=== PATIENT | female | born 1950 | race Caucasian/White ===

== ENCOUNTER 2021-04-12 20:14 | Inpatient (IN) | payer OTHER ==
[~2021-04-12] VITALS: Ht 162.6 cm; Wt 69.5 kg
[2021-04-12] MEDS ORDERED: SODIUM CHLORIDE 0.9% 1,000 ML IV ONE ×2 (21:15→23:30)
[2021-04-12 22:01] LABS: MEAN CORPUSCULAR HEMOGLOBIN 27.3 pg (28.0-32.0); MEAN CORPUSCULAR VOLUME 84.9 fL (81.0-99.0); MEAN PLATELET VOLUME 8.1 fl (7.4-10.4); PLATELET 443 x1000/uL (130-400); RED CELL DISTRIBUTION WIDTH 15.6 % (11.6-14.6)
[2021-04-12 22:05] LABS: CHLORIDE 97 mEq/L (98-107)
[2021-04-12 22:09] LABS: INR 1.2; PROTHROMBIN TIME 12.3 sec (9.6-11.0)
[2021-04-12] MEDS ORDERED: CEFEPIME 1,000 MG in DEXTROSE 5% WATER 50 ML IV SCH (22:15)
[2021-04-12] MEDS ORDERED: VANCOMYCIN 1 G PREMIX 200 ML IV SCH (22:15)
[2021-04-12 22:21] LABS: PLATELET ESTIMATE SLIGHTLY INCREASED
[2021-04-12] MEDS ORDERED: POTASSIUM CHLORIDE 20MEQ TABLET SR PO ONE (23:30)
[2021-04-12] MEDS ORDERED: NOREPINEPHRINE 8 MG in DEXT 5% WATER 242 ML IV PRN (23:45)
[2021-04-13] VITALS (77 sets, daily range): BP systolic 45–131; BP diastolic 22–103
[2021-04-13] MEDS ORDERED: KCL 10MEQ/50ML PREMIX 50 ML IV ONE (00:15)
[2021-04-13] MEDS: NOREPINEPHRINE 8MG/250ML PMX 250 ML IV PRN ×2 (00:22→02:35)
[2021-04-13] MEDS ORDERED: FENTANYL CITRATE/PF 50MCG/ML 2ML VIAL ONE (06:11)
[2021-04-13] MEDS ORDERED: MIDAZOLAM HCL 2 MG/2 ML VIAL ONE ×2 (06:11→06:28)
[2021-04-13] MEDS ORDERED: GLYCOPYRROLATE 0.2 MG/ML 2ML VIAL ONE (06:11)
[2021-04-13] MEDS ORDERED: ROCURONIUM BROMIDE 10MG/ML VIAL 5ML IV ONE ×2 (06:11→06:56)
[2021-04-13] MEDS ORDERED: PROPOFOL 200MG/20ML VIAL IV ONE (06:11)
[2021-04-13] MEDS ORDERED: NEOSTIGMINE METHYLSULFATE 1MG/ML 10 ML VIAL ONE (06:11)
[2021-04-13] MEDS ORDERED: PHENYLEPHRINE HCL 10 MG/ML 1ML (IV VIAL) IV ONE (06:11)
[2021-04-13] MEDS ORDERED: SODIUM CHLORIDE 0.9% 10ML VIAL ONE (06:12)
[2021-04-13] MEDS ORDERED: CEFAZOLIN SODIUM 1000MG/VIAL ONE (06:12)
[2021-04-13] MEDS ORDERED: BUPIVACAINE HCL/PF 0.5% (5MG/ML) 10ML ONE (06:12)
[2021-04-13] MEDS ORDERED: ONDANSETRON HCL 4MG/2ML INJ ONE (06:12)
[2021-04-13] MEDS ORDERED: SUCCINYLCHOLINE CHLORIDE 200MG/10ML IV ONE (06:12)
[2021-04-13] MEDS ORDERED: METOCLOPRAMIDE HCL 10MG/2ML VIAL ONE (06:12)
[2021-04-13] MEDS ORDERED: MORPHINE SULFATE 2 MG/ML CPJ (NOT FOR IM USE) IV PRN (06:15)
[2021-04-13] MEDS ORDERED: ONDANSETRON HCL 4MG/2ML INJ IV PRN (06:15)
[2021-04-13] MEDS ORDERED: DEXT 5%/0.45% NACL KCL 20MEQ/L 1,000 ML IV SCH ×2 (06:15→11:00)
[2021-04-13] MEDS ORDERED: POTASSIUM CHLORIDE INJ 40 MEQ in DEXT 5% WATER 250 ML IV NR ×2 (06:15→10:00)
[2021-04-13] MEDS ORDERED: MORPHINE SULFATE 4 MG/ML CPJ (NOT FOR IM USE) IV PRN (06:15)
[2021-04-13] MEDS ORDERED: SODIUM BICARBONATE 8.4% 1 MEQ/ML 50ML SYR IV ONE (06:26)
[2021-04-13] MEDS ORDERED: ALBUMIN HUMAN 12.5G/250ML (5%) IV ONE ×2 (06:29→06:50)
[2021-04-13 09:09] LABS: BG CARBOXYHEMOGLOBIN 0.9 % (0.5-1.5); BG DEOXYHEMOGLOBIN 0.8 % (0.0-5.0); BG FRACTION INSPIRED OXYGEN 60; BG METHEMOGLOBIN 0.3 % (0.0-1.5); BG OXYGEN SATURATION 99.2 % (92.0-98.5); BG PCO2 34.7 mmHg (35.0-45.0); BG PH 7.332 (7.350-7.450); BG PO2 170.1 mmHg (75.0-100.0); BG SAMPLE SITE RIGHT RADIAL; BG TOTAL HEMOGLOBIN 14.8 g/dL (12.0-18.0); BG VENT MODE VENT - AC
[2021-04-13 09:24] LABS: HEMOGLOBIN. 10.8 g/dL (12.0-16.0); MEAN CORPUSCULAR HEMOGLOBIN 28.8 pg (28.0-32.0); MEAN CORPUSCULAR VOLUME 87.6 fL (81.0-99.0); MEAN PLATELET VOLUME 8.3 fl (7.4-10.4); PLATELET 163 x1000/uL (130-400); RED BLOOD CELL COUNT 3.77 mill/uL (4.2-5.4); RED CELL DISTRIBUTION WIDTH 15.7 % (11.6-14.6)
[2021-04-13] MEDS ORDERED: IPRATROPIUM/ALBUTEROL 0.5-3(2.5)MG/3ML NEB HHN PRN (09:30)
[2021-04-13 10:17] LABS: PLATELET ESTIMATE NORMAL
[2021-04-13] MEDS: METRONIDAZOLE 500 MG PREMIX 100 ML IV SCH ×3 (10:57→21:26)
[2021-04-13] MEDS: DEXT 5%/0.9% NACL 1,000 ML IV SCH ×2 (11:32→21:24)
[2021-04-13] MEDS: CEFEPIME 1,000 MG in DEXTROSE 5% WATER 50 ML IV SCH ×2 (11:59→23:36)
[2021-04-13 12:21] LABS: CLARITY URINE CLOUDY (CLEAR); COLOR URINE YELLOW (YELLOW); KETONES URINE NEGATIVE (NEGATIVE); LEUKOCYTE ESTERASE URINE TRACE (NEGATIVE); NITRITE URINE POSITIVE (NEGATIVE); OCCULT BLOOD URINE 1+ (NEGATIVE); PROTEIN URINE 3+ (NEGATIVE); SPECIFIC GRAVITY URINE 1.015 (1.005-1.030); UROBILINOGEN URINE 0.2 E.U./dL (0.2-1.0)
[2021-04-13 14:04] LABS: BG BASE EXCESS -7.2 mmol/L (-2.0-2.0); BG CARBOXYHEMOGLOBIN 0.6 % (0.5-1.5); BG DEOXYHEMOGLOBIN 3.7 % (0.0-5.0); BG FRACTION INSPIRED OXYGEN 40; BG HCO3 ACT 18.7 mmol/L (22.0-26.0); BG METHEMOGLOBIN 0.3 % (0.0-1.5); BG OXYGEN SATURATION 96.3 % (92.0-98.5); BG OXYHEMOGLOBIN 95.4 % (94.0-97.0); BG PCO2 38.9 mmHg (35.0-45.0); BG PH 7.299 (7.350-7.450); BG PO2 85.6 mmHg (75.0-100.0); BG SAMPLE SITE LEFT RADIAL; BG VENT MODE MASK - CPAP
[2021-04-13] MEDS ORDERED: FENTANYL CITRATE/PF 2,500 MCG in SODIUM CHLORIDE 0.9% 200 ML IV PRN (14:30)
[2021-04-13] MEDS ORDERED: SODIUM CHLORIDE 0.9% 500 ML IV NR ×2 (14:30→15:30)
[2021-04-13] MEDS: MORPHINE SULFATE 2 MG/ML CPJ (NOT FOR IM USE) IV PRN (14:50)
[2021-04-13] MEDS ORDERED: SODIUM CHLORIDE 0.9% 1,000 ML IV ONE (15:15)
[2021-04-13] MEDS ORDERED: SODIUM CHLORIDE 0.9% 1,000 ML IV NR (15:19)
[2021-04-13] MEDS ORDERED: PHENYLEPHRINE 100 MG in DEXT 5% WATER 240 ML IV PRN (18:30)
[2021-04-13] MEDS: FAMOTIDINE 20MG/2ML VIAL IV SCH (21:24)
[2021-04-14] VITALS (79 sets, daily range): BP systolic 76–168; BP diastolic 35–111
[2021-04-14] MEDS: METRONIDAZOLE 500 MG PREMIX 100 ML IV SCH ×3 (06:06→22:30)
[2021-04-14 06:10] LABS: HEMATOCRIT. 38.1 % (36.0-48.0); HEMOGLOBIN. 12.3 g/dL (12.0-16.0); MEAN CORPUSCULAR VOLUME 84.1 fL (81.0-99.0); MEAN PLATELET VOLUME 8.4 fl (7.4-10.4); PLATELET 318 x1000/uL (130-400); RED BLOOD CELL COUNT 4.53 mill/uL (4.2-5.4); RED CELL DISTRIBUTION WIDTH 16.2 % (11.6-14.6)
[2021-04-14 06:24] LABS: PHOSPHORUS 3.2 mg/dL (2.5-4.9)
[2021-04-14] MEDS: DEXT 5%/0.9% NACL 1,000 ML IV SCH ×2 (09:20→23:50)
[2021-04-14 10:40] LABS: BG BASE EXCESS -8.1 mmol/L (-2.0-2.0); BG CARBOXYHEMOGLOBIN 0.3 % (0.5-1.5); BG DEOXYHEMOGLOBIN 1.7 % (0.0-5.0); BG FRACTION INSPIRED OXYGEN 40; BG HCO3 ACT 16.7 mmol/L (22.0-26.0); BG METHEMOGLOBIN 0.4 % (0.0-1.5); BG OXYGEN SATURATION 98.3 % (92.0-98.5); BG OXYHEMOGLOBIN 97.6 % (94.0-97.0); BG PH 7.335 (7.350-7.450); BG PO2 128.6 mmHg (75.0-100.0); BG SAMPLE SITE RIGHT RADIAL; BG TOTAL HEMOGLOBIN 12.1 g/dL (12.0-18.0); BG VENT MODE VENT - CPAP
[2021-04-14] MEDS: CEFEPIME 1,000 MG in DEXTROSE 5% WATER 50 ML IV SCH ×2 (13:08→23:49)
[2021-04-14] MEDS ORDERED: NALOXONE HCL 0.4MG/ML VIAL IV PRN (13:15)
[2021-04-14] MEDS: MORPHINE SULFATE 2 MG/ML CPJ (NOT FOR IM USE) IV PRN (16:41)
[2021-04-14] MEDS: FAMOTIDINE 20MG/2ML VIAL IV SCH (21:53)
[2021-04-15] VITALS (60 sets, daily range): BP systolic 91–198; BP diastolic 45–148
[2021-04-15] MEDS: MORPHINE SULFATE 2 MG/ML CPJ (NOT FOR IM USE) IV PRN ×2 (04:41→12:17)
[2021-04-15 05:17] LABS: HEMATOCRIT. 34.8 % (36.0-48.0); HEMOGLOBIN. 11.3 g/dL (12.0-16.0); MEAN CORPUSCULAR HEMOGLOBIN 27.6 pg (28.0-32.0); MEAN CORPUSCULAR VOLUME 84.6 fL (81.0-99.0); PLATELET 265 x1000/uL (130-400); RED BLOOD CELL COUNT 4.12 mill/uL (4.2-5.4); RED CELL DISTRIBUTION WIDTH 16.2 % (11.6-14.6)
[2021-04-15] MEDS: METRONIDAZOLE 500 MG PREMIX 100 ML IV SCH ×3 (06:36→21:43)
[2021-04-15 09:16] LABS: BG BASE EXCESS -9.8 mmol/L (-2.0-2.0); BG CARBOXYHEMOGLOBIN 0.2 % (0.5-1.5); BG DEOXYHEMOGLOBIN 1.6 % (0.0-5.0); BG HCO3 ACT 15.6 mmol/L (22.0-26.0); BG METHEMOGLOBIN 0.4 % (0.0-1.5); BG OXYGEN SATURATION 98.4 % (92.0-98.5); BG OXYHEMOGLOBIN 97.8 % (94.0-97.0); BG PCO2 32.6 mmHg (35.0-45.0); BG PH 7.297 (7.350-7.450); BG PO2 128.9 mmHg (75.0-100.0); BG SAMPLE SITE RIGHT RADIAL; BG TOTAL HEMOGLOBIN 12.1 g/dL (12.0-18.0); BG VENT MODE NASAL CANNULA
[2021-04-15] MEDS ORDERED: HYDRALAZINE 20MG/ML VIAL IV PRN (10:15)
[2021-04-15] MEDS ORDERED: HYDRALAZINE 20MG/ML VIAL IV SCH (10:15)
[2021-04-15 10:18] LABS: PLATELET ESTIMATE NORMAL
[2021-04-15] MEDS: CEFEPIME 1,000 MG in DEXTROSE 5% WATER 50 ML IV SCH ×2 (11:09→23:14)
[2021-04-15] MEDS: DEXT 5%/0.45% NACL 1000ML 1,000 ML IV SCH (11:10)
[2021-04-15] MEDS: FAMOTIDINE 20MG/2ML VIAL IV SCH (21:42)
[2021-04-16] VITALS (12 sets, daily range): BP systolic 92–160; BP diastolic 51–99
[2021-04-16] MEDS: METRONIDAZOLE 500 MG PREMIX 100 ML IV SCH ×3 (06:43→21:15)
[2021-04-16 07:13] LABS: HEMOGLOBIN. 11.4 g/dL (12.0-16.0); MEAN CORPUSCULAR VOLUME 85.1 fL (81.0-99.0); MEAN PLATELET VOLUME 8.4 fl (7.4-10.4); PLATELET 251 x1000/uL (130-400); RED BLOOD CELL COUNT 4.22 mill/uL (4.2-5.4); RED CELL DISTRIBUTION WIDTH 17.1 % (11.6-14.6)
[2021-04-16 07:44] LABS: PHOSPHORUS 4.1 mg/dL (2.5-4.9)
[2021-04-16] MEDS: DEXT 5%/0.45% NACL 1000ML 1,000 ML IV SCH (09:07)
[2021-04-16 10:43] LABS: PLATELET ESTIMATE NORMAL
[2021-04-16] MEDS: CEFEPIME 1,000 MG in DEXTROSE 5% WATER 50 ML IV SCH (12:13)
[2021-04-16] MEDS: FAMOTIDINE 20MG/2ML VIAL IV SCH (21:14)
[2021-04-16] MEDS: DEXTROSE 5% WATER 1,000 ML IV SCH (21:15)
[2021-04-17] VITALS (11 sets, daily range): BP systolic 71–151; BP diastolic 48–95
[2021-04-17] MEDS: METRONIDAZOLE 500 MG PREMIX 100 ML IV SCH ×2 (05:59→15:19)
[2021-04-17 07:11] LABS: HEMATOCRIT. 34.8 % (36.0-48.0); HEMOGLOBIN. 11.2 g/dL (12.0-16.0); MEAN CORPUSCULAR HEMOGLOBIN 26.7 pg (28.0-32.0); MEAN CORPUSCULAR VOLUME 82.9 fL (81.0-99.0); MEAN PLATELET VOLUME 8.1 fl (7.4-10.4); PLATELET 215 x1000/uL (130-400); RED BLOOD CELL COUNT 4.19 mill/uL (4.2-5.4); RED CELL DISTRIBUTION WIDTH 16.5 % (11.6-14.6)
[2021-04-17 08:27] LABS: PHOSPHORUS 3.9 mg/dL (2.5-4.9)
[2021-04-17] MEDS: CEFEPIME 1,000 MG in DEXTROSE 5% WATER 50 ML IV SCH (10:58)
[2021-04-17 15:19] LABS: PLATELET ESTIMATE NORMAL
[2021-04-17] MEDS: DEXTROSE 5% WATER 1,000 ML IV SCH (16:00)
[2021-04-17 16:39] LABS: HEPATITIS B SURFACE ANTIGEN NEGATIVE
[2021-04-17] MEDS ORDERED: ALBUMIN HUMAN 25GM/100ML (25%) IV NR (20:45)
[2021-04-17] MEDS ORDERED: SODIUM CHLORIDE 0.9% 500 ML IV ONE (20:45)
[2021-04-17] MEDS: FAMOTIDINE 20MG/2ML VIAL IV SCH (21:33)
[2021-04-18] VITALS (11 sets, daily range): BP systolic 82–151; BP diastolic 54–86
[2021-04-18 07:31] LABS: BASOPHILS % 0.3 % (0.0-2.0); EOSINOPHILS % 1.1 % (0.0-5.0); HEMATOCRIT. 34.4 % (36.0-48.0); HEMOGLOBIN. 11.1 g/dL (12.0-16.0); LYMPHOCYTES % 7.1 % (20.0-50.0); MEAN CORPUSCULAR HEMOGLOBIN 26.5 pg (28.0-32.0); MEAN CORPUSCULAR VOLUME 82.3 fL (81.0-99.0); MEAN PLATELET VOLUME 8.2 fl (7.4-10.4); MONOCYTES % 8.5 % (2.0-8.0); PLATELET 158 x1000/uL (130-400); RED BLOOD CELL COUNT 4.17 mill/uL (4.2-5.4); RED CELL DISTRIBUTION WIDTH 16.3 % (11.6-14.6)
[2021-04-18 08:01] LABS: PHOSPHORUS 3.3 mg/dL (2.5-4.9)
[2021-04-18] MEDS: METRONIDAZOLE 500 MG PREMIX 100 ML IV SCH ×2 (08:53→21:01)
[2021-04-18] MEDS: CEFEPIME 1,000 MG in DEXTROSE 5% WATER 50 ML IV SCH (10:43)
[2021-04-18] MEDS: DEXTROSE 5% WATER 1,000 ML IV SCH (14:47)
[2021-04-18] MEDS: FAMOTIDINE 20MG/2ML VIAL IV SCH (21:01)
[2021-04-19] VITALS (12 sets, daily range): BP systolic 118–159; BP diastolic 56–76
[2021-04-19 05:41] LABS: HEMATOCRIT. 30.9 % (36.0-48.0); HEMOGLOBIN. 10.4 g/dL (12.0-16.0); MEAN CORPUSCULAR HEMOGLOBIN 26.9 pg (28.0-32.0); MEAN CORPUSCULAR VOLUME 80.3 fL (81.0-99.0); MEAN PLATELET VOLUME 8.6 fl (7.4-10.4); PLATELET 144 x1000/uL (130-400); RED BLOOD CELL COUNT 3.85 mill/uL (4.2-5.4); RED CELL DISTRIBUTION WIDTH 16.4 % (11.6-14.6)
[2021-04-19 06:27] LABS: PHOSPHORUS 2.4 mg/dL (2.5-4.9)
[2021-04-19] MEDS: DEXTROSE 5% WATER 1,000 ML IV SCH (08:58)
[2021-04-19 09:35] LABS: PLATELET ESTIMATE NORMAL
[2021-04-19] MEDS ORDERED: POTASSIUM PHOS,M-BASIC-D-BASIC 15 MMOL in DEXT 5% WATER 245 ML IV SCH (12:00)
[2021-04-19 14:48] LABS: BG BASE EXCESS 1.1 mmol/L (-2.0-2.0); BG CARBOXYHEMOGLOBIN 0.3 % (0.5-1.5); BG DEOXYHEMOGLOBIN 3.2 % (0.0-5.0); BG FRACTION INSPIRED OXYGEN 28; BG HCO3 ACT 24.6 mmol/L (22.0-26.0); BG METHEMOGLOBIN 0.3 % (0.0-1.5); BG OXYGEN SATURATION 96.8 % (92.0-98.5); BG OXYHEMOGLOBIN 96.2 % (94.0-97.0); BG PCO2 35.5 mmHg (35.0-45.0); BG PH 7.459 (7.350-7.450); BG PO2 91.6 mmHg (75.0-100.0); BG SAMPLE SITE LEFT BRACHIAL; BG TOTAL HEMOGLOBIN 11.7 g/dL (12.0-18.0); BG VENT MODE NASAL CANNULA
[2021-04-19] MEDS: FAMOTIDINE 20MG/2ML VIAL IV SCH (20:18)
[2021-04-20] VITALS (12 sets, daily range): BP systolic 88–151; BP diastolic 54–86
[2021-04-20] MEDS: DEXTROSE 5% WATER 1,000 ML IV SCH ×2 (04:37→12:34)
[2021-04-20 06:31] LABS: HEMATOCRIT. 29.6 % (36.0-48.0); HEMOGLOBIN. 9.8 g/dL (12.0-16.0); MEAN CORPUSCULAR VOLUME 81.9 fL (81.0-99.0); MEAN PLATELET VOLUME 8.9 fl (7.4-10.4); PLATELET 145 x1000/uL (130-400); RED BLOOD CELL COUNT 3.62 mill/uL (4.2-5.4); RED CELL DISTRIBUTION WIDTH 16.2 % (11.6-14.6)
[2021-04-20 07:00] LABS: PHOSPHORUS 4.6 mg/dL (2.5-4.9)
[2021-04-20 17:14] LABS: PLATELET ESTIMATE NORMAL
[2021-04-20] MEDS: FAMOTIDINE 20MG/2ML VIAL IV SCH (21:46)
[2021-04-21] VITALS (23 sets, daily range): BP systolic 106–172; BP diastolic 13–104
[2021-04-21 06:01] LABS: HEMOGLOBIN. 11.7 g/dL (12.0-16.0); MEAN CORPUSCULAR HEMOGLOBIN 26.5 pg (28.0-32.0); MEAN CORPUSCULAR VOLUME 81.4 fL (81.0-99.0); MEAN PLATELET VOLUME 8.6 fl (7.4-10.4); PLATELET 139 x1000/uL (130-400); RED BLOOD CELL COUNT 4.42 mill/uL (4.2-5.4); RED CELL DISTRIBUTION WIDTH 16.5 % (11.6-14.6)
[2021-04-21 19:40] LABS: PLATELET ESTIMATE NORMAL
== END 2021-04-21 20:35 | disposition short-term general hospital (02) | DRG 853 ==
LOC: ER 20:14 → EDBEDREQSVC 04-13 00:16 → EDBEDREQDT 04-13 00:16 → EDBEDREQ 04-13 00:16 → EDBEDREQTM 04-13 00:16 → MICUSO 04-13 02:53 → MICUNO 04-13 08:35 → 5EST 04-15 16:19
PROVIDERS: ADMIT Internal Medicine; ATTEND Internal Medicine
PROC: 0DU907Z Supplement Duodenum with Autologous Tissue Substitute, Open Approach (ICD-10-PCS; principal; 2021-04-13)
PROC: 0D9670Z Drainage of Stomach with Drainage Device, Via Natural or Artificial Opening (ICD-10-PCS; 2021-04-13)
PROC: 5A1D70Z Performance of Urinary Filtration, Intermittent, Less than 6 Hours Per Day (ICD-10-PCS; 2021-04-17)
PROC: 06HY33Z Insertion of Infusion Device into Lower Vein, Percutaneous Approach (ICD-10-PCS; 2021-04-17)
PROC: B54CZZA Ultrasonography of Left Lower Extremity Veins, Guidance (ICD-10-PCS; 2021-04-17)
PROC: 5A1D70Z Performance of Urinary Filtration, Intermittent, Less than 6 Hours Per Day (ICD-10-PCS; 2021-04-18)
DX: A41.59 Other Gram-negative sepsis (principal); J96.00 Acute respiratory failure, unspecified whether with hypoxia or hypercapnia; N17.0 Acute kidney failure with tubular necrosis; K85.90 Acute pancreatitis without necrosis or infection, unspecified; R65.21 Severe sepsis with septic shock; K65.9 Peritonitis, unspecified; K26.5 Chronic or unspecified duodenal ulcer with perforation; N39.0 Urinary tract infection, site not specified; E87.0 Hyperosmolality and hypernatremia; J84.9 Interstitial pulmonary disease, unspecified; R91.8 Other nonspecific abnormal finding of lung field; E87.6 Hypokalemia; E87.8 Other disorders of electrolyte and fluid balance, not elsewhere classified; D75.1 Secondary polycythemia; E86.0 Dehydration; J44.9 Chronic obstructive pulmonary disease, unspecified; R80.9 Proteinuria, unspecified; I78.1 Nevus, non-neoplastic; Z20.822 Contact with and (suspected) exposure to COVID-19
CPT/HCPCS: 36415; 36556; 36600; 71045; 74176; 76770; 76937; 80048; 80053; 81003; 82375; 82550; 82805; 82962; 83605; 83735; 84100; 84145; 84484; 85025; 86705; 86709; 86803; 87070; 87075; 87077; 87186; 87340; 87426; 93005; 94003; 97110; 97116; 97162; 97166; 97530; 99291; A6261; C1752; C1769; C1887; J0330; J0360; J0690; J0692; J2250; J2270; J2370; J2405; J2704; J2710; J2765; J3010; J3370; J3480; J3490; J7030; J7040; J7042; J7060; J7070; P9041; P9047